=== PATIENT | female | born 1990 | race Caucasian/White ===

== ENCOUNTER 2016-08-22 11:57 | Emergency (ER) | payer OTHER ==
[~2016-08-22] VITALS: Ht 162.6 cm; Wt 61.0 kg
[~2016-08-22 11:57] MED LIST: NAPROSYN500 MG PO
[2016-08-22] MEDS ORDERED: TOBRAMYCIN0.3 % OS (12:29)
[2016-08-22 12:36] VITALS: BP 104/50
== END 2016-08-22 12:40 | disposition home or self-care (01) | DRG 125 ==
LOC: ED 11:57
DX: H10.9 Unspecified conjunctivitis (principal); H57.12 Ocular pain, left eye

== ENCOUNTER 2016-09-23 07:38 | Emergency (ER) | payer SELFPAY ==
[~2016-09-23] VITALS: Ht 162.6 cm; Wt 56.0 kg
[~2016-09-23 07:38] MED LIST changes: +TOBRAMYCIN0.3 % OS
[2016-09-23 08:33] LABS: URINE BILIRUBIN - DIPSTICK NEGATIVE (NEGATIVE); URINE BLOOD DIPSTICK NEGATIVE (NEGATIVE); URINE CLARITY CLEAR; URINE COLOR YELLOW; URINE GLUCOSE - DIPSTICK NEGATIVE (NEGATIVE); URINE KETONE NEGATIVE (NEGATIVE); URINE LEUK ESTERASE NEGATIVE (NEGATIVE); URINE NITRITE - DIPSTICK NEGATIVE (Negative); URINE PROTEIN - DIPSTICK NEGATIVE (NEG-TRACE); URINE UROBILINOGEN - DIPSTICK 0.2 E.U./dL (0.2)
[2016-09-23 08:33] LABS: HEMATOCRIT 41.8 % (37.0-47.0); HEMOGLOBIN 14.2 g/dl (12.0-16.0); IMMATURE GRANULOCYTES 0.3 % (0.0-1.0); MEAN CELL VOLUME 90.9 fL CALC (80.0-100.0); MEAN CORPUSCULAR HGB 30.9 pG CALC (26.0-32.0); NEUT# 4.3 thou/uL (2.00-7.15); RED BLOOD COUNT 4.6 mill/uL (4.20-5.60); RED CELL DISTRI WIDTH 12.9 % (11.5-15.5)
[2016-09-23 09:05] LABS: ALBUMIN 4.5 g/dL (3.2-5.0); ALKALINE PHOSPHATASE 57 u/l (38-126); AMYLASE 58 u/l (30-110); ANION GAP 13 (6-22 (CALC)); BILIRUBIN, TOTAL 0.8 mg/dL (0.0-1.4); BUN 12 mg/dL (7-17); BUN/CREATININE RATIO 19 (12-20 (CALC)); CALCIUM 9.4 mg/dL (8.4-10.2); CARBON DIOXIDE 25 mmol/l (22-30); CHLORIDE 104 mmol/l (95-108); CREATININE 0.6 mg/dL (0.5-1.0); GFR > 60 ML/MIN (>=60 (CALC)); GFR FOR AFR.AMER. > 60 ML/MIN (>=60 (CALC)); GLUCOSE 83 mg/dL (65-105); LIPASE 30 u/l (23-300); POTASSIUM 4.3 mmol/l (3.5-5.1); SGOT/AST 20 u/l (14-36); SGPT/ALT 24 u/l (9-52); SODIUM 138 mmol/l (137-146); TOTAL PROTEIN 7.2 g/dL (6.3-8.2)
[2016-09-23 12:16] VITALS: BP 102/57
== END 2016-09-23 12:24 | disposition home or self-care (01) | DRG 392 ==
LOC: ED 07:38
PROVIDERS: Emergency Medicine
DX: K52.9 Noninfective gastroenteritis and colitis, unspecified (principal); R11.2 Nausea with vomiting, unspecified; R10.84 Generalized abdominal pain

== ENCOUNTER 2016-10-09 11:20 | Emergency (ER) | payer SELFPAY ==
[~2016-10-09] VITALS: Ht 162.6 cm; Wt 61.0 kg
[2016-10-09 12:08] VITALS: BP 101/63
== END 2016-10-09 12:15 | disposition home or self-care (01) | DRG 153 ==
LOC: ED 11:20
DX: J02.9 Acute pharyngitis, unspecified (principal); R51 Headache

== ENCOUNTER 2017-01-07 12:15 | Emergency (ER) | payer SELFPAY ==
[~2017-01-07] VITALS: Ht 162.6 cm; Wt 62.0 kg
[2017-01-07] MEDS ORDERED: AMOXICILLIN500 MG PO (13:49)
[2017-01-07] MEDS ORDERED: ROBITUSSIN AC10 ML PO (13:49)
[2017-01-07 14:06] VITALS: BP 112/72
== END 2017-01-07 14:15 | disposition home or self-care (01) | DRG 153 ==
LOC: ED 12:15
DX: J02.9 Acute pharyngitis, unspecified (principal)

== ENCOUNTER 2017-02-11 11:16 | Emergency (ER) | payer SELFPAY ==
[~2017-02-11] VITALS: Ht 162.6 cm; Wt 59.0 kg
[~2017-02-11 11:16] MED LIST changes: +AMOXICILLIN500 MG PO; +ROBITUSSIN AC10 ML PO
[2017-02-11 12:05] LABS: HEMATOCRIT 40.4 % (37.0-47.0); HEMOGLOBIN 13.5 g/dl (12.0-16.0); IMMATURE GRANULOCYTES 0.3 % (0.0-1.0); MEAN CELL VOLUME 90.2 fL CALC (80.0-100.0); MEAN CORPUSCULAR HGB 30.1 pG CALC (26.0-32.0); MEAN CORPUSCULAR HGB CONC 33.4 g/L CALC (32.0-36.0); NEUT# 4.06 thou/uL (2.00-7.15); RED BLOOD COUNT 4.48 mill/uL (4.20-5.60); RED CELL DISTRI WIDTH 12.5 % (11.5-15.5); URINE BILIRUBIN - DIPSTICK NEGATIVE (NEGATIVE); URINE BLOOD DIPSTICK SMALL (NEGATIVE); URINE CLARITY CLEAR; URINE COLOR YELLOW; URINE GLUCOSE - DIPSTICK NEGATIVE (NEGATIVE); URINE KETONE NEGATIVE (NEGATIVE); URINE LEUK ESTERASE NEGATIVE (Negative); URINE NITRITE - DIPSTICK NEGATIVE (Negative); URINE PH 6.5 (4.5-8.0); URINE PROTEIN - DIPSTICK NEGATIVE (NEG-TRACE); URINE UROBILINOGEN - DIPSTICK 0.2 E.U./dL (0.2)
[2017-02-11 12:06] LABS: URINE EPITHELIAL CELLS RARE EPI/hpf (0-FEW)
[2017-02-11 12:11] LABS: ALBUMIN 4.9 g/dL (3.2-5.0); ALKALINE PHOSPHATASE 57 u/l (38-126); ANION GAP 14 (6-22 (CALC)); BILIRUBIN, TOTAL 0.7 mg/dL (0.0-1.4); BUN 9 mg/dL (7-17); BUN/CREATININE RATIO 14 (12-20 (CALC)); CALCIUM 9.5 mg/dL (8.4-10.2); CARBON DIOXIDE 28 mmol/l (22-30); CHLORIDE 104 mmol/l (95-108); CREATININE 0.7 mg/dL (0.5-1.0); GFR > 60 ML/MIN (>=60 (CALC)); GFR FOR AFR.AMER. > 60 ML/MIN (>=60 (CALC)); GLUCOSE 89 mg/dL (65-105); LIPASE 28 u/l (23-300); POTASSIUM 3.8 mmol/l (3.5-5.1); SGOT/AST 17 u/l (14-36); SGPT/ALT 32 u/l (9-52); SODIUM 143 mmol/l (137-146); TOTAL PROTEIN 7.8 g/dL (6.3-8.2)
[2017-02-11] MEDS ORDERED: CIPROFLOXACN500 MG PO (15:49)
[2017-02-11 16:06] VITALS: BP 100/58
== END 2017-02-11 16:09 | disposition home or self-care (01) | DRG 392 ==
LOC: ED 11:16
PROVIDERS: Emergency Medicine
DX: R10.32 Left lower quadrant pain (principal)

== ENCOUNTER 2017-03-06 09:16 | Emergency (ER) | payer OTHER ==
[~2017-03-06] VITALS: Ht 162.6 cm; Wt 59.1 kg
[~2017-03-06 09:16] MED LIST changes: +CIPROFLOXACN500 MG PO
[2017-03-06] MEDS ORDERED: MOTRIN800 MG PO (09:39)
[2017-03-06 10:00] VITALS: BP 127/68
== END 2017-03-06 10:00 | disposition home or self-care (01) | DRG 556 ==
LOC: ED 09:16
DX: M25.561 Pain in right knee (principal); S89.91XA Unspecified injury of right lower leg, initial encounter; W19.XXXA Unspecified fall, initial encounter

== ENCOUNTER 2017-06-05 15:40 | Emergency (ER) | payer OTHER ==
[~2017-06-05] VITALS: Ht 162.6 cm; Wt 63.2 kg
[~2017-06-05 15:40] MED LIST changes: +MOTRIN800 MG PO
[2017-06-05] MEDS ORDERED: TAM75CAP PO (16:10)
[2017-06-05 16:57] VITALS: BP 108/61
[2017-06-05] MEDS ORDERED: NO HOME MEDS (16:58)
== END 2017-06-05 16:57 | disposition home or self-care (01) | DRG 153 ==
LOC: ED 15:40
DX: J11.1 Influenza due to unidentified influenza virus with other respiratory manifestations (principal); R05 Cough; R09.81 Nasal congestion; R50.9 Fever, unspecified; R52 Pain, unspecified

== ENCOUNTER 2017-07-21 09:55 | Emergency (ER) | payer OTHER ==
[~2017-07-21] VITALS: Ht 162.6 cm; Wt 66.4 kg
[~2017-07-21 09:55] MED LIST changes: +NO HOME MEDS; +TAM75CAP PO
[2017-07-21 12:00] VITALS: BP 114/71
[2017-07-21] MEDS ORDERED: ULTRAM50 M1 PO (12:02)
== END 2017-07-21 12:00 | disposition home or self-care (01) | DRG 605 ==
LOC: ED 09:55
DX: S01.81XA Laceration without foreign body of other part of head, initial encounter (principal); F17.210 Nicotine dependence, cigarettes, uncomplicated; V86.95XA Unspecified occupant of 3- or 4- wheeled all-terrain vehicle (ATV) injured in nontraffic accident, initial encounter

== ENCOUNTER 2017-08-08 09:57 | Emergency (ER) | payer OTHER ==
[~2017-08-08] VITALS: Ht 162.6 cm; Wt 63.6 kg
[~2017-08-08 09:57] MED LIST changes: +ULTRAM50 M1 PO
[2017-08-08] MEDS ORDERED: TESSALON PER100 MG PO (10:11)
[2017-08-08] MEDS ORDERED: AFRIN 12 HOUR0.05 % (10:11)
[2017-08-08] MEDS ORDERED: MOTRIN800 MG PO (10:11)
[2017-08-08 10:12] VITALS: BP 121/72
== END 2017-08-08 10:21 | disposition home or self-care (01) | DRG 153 ==
LOC: ED 09:57
DX: J06.9 Acute upper respiratory infection, unspecified (principal); R09.81 Nasal congestion; R42 Dizziness and giddiness

== ENCOUNTER 2018-02-03 15:46 | Emergency (ER) | payer OTHER ==
[~2018-02-03] VITALS: Ht 162.6 cm; Wt 56.9 kg
[~2018-02-03 15:46] MED LIST changes: +AFRIN 12 HOUR0.05 %; +TESSALON PER100 MG PO
[2018-02-03 16:45] LABS: URINE BILIRUBIN - DIPSTICK NEGATIVE (NEGATIVE); URINE BLOOD DIPSTICK MODERATE (NEGATIVE); URINE COLOR YELLOW; URINE GLUCOSE - DIPSTICK NEGATIVE (NEGATIVE); URINE KETONE NEGATIVE (NEGATIVE); URINE NITRITE - DIPSTICK NEGATIVE (Negative); URINE PH 6.5 (4.5-8.0); URINE PROTEIN - DIPSTICK NEGATIVE (NEG-TRACE); URINE SPECIFIC GRAVITY <=1.005; URINE UROBILINOGEN - DIPSTICK 0.2 E.U./dL (0.2)
[2018-02-03 16:46] LABS: URINE LEUK ESTERASE MODERATE (NEGATIVE)
[2018-02-03 16:47] LABS: URINE CLARITY HAZY
[2018-02-03 16:59] LABS: URINE SQUAMOUS EPITHELIAL CELL MODERATE EPI/hpf (0-FEW)
[2018-02-03] MEDS ORDERED: CIPROFLOXACN500 MG PO (17:11)
[2018-02-03] MEDS ORDERED: PYRIDIUM200 MG PO (17:12)
[2018-02-03 17:40] VITALS: BP 114/67
== END 2018-02-03 17:40 | disposition home or self-care (01) ==
LOC: ED 15:46
DX: N39.0 Urinary tract infection, site not specified (principal); B96.20 Unspecified Escherichia coli [E. coli] as the cause of diseases classified elsewhere; F17.210 Nicotine dependence, cigarettes, uncomplicated; R30.0 Dysuria; R35.0 Frequency of micturition; R39.15 Urgency of urination

== ENCOUNTER 2018-02-17 08:32 | Emergency (ER) | payer OTHER ==
[~2018-02-17] VITALS: Ht 162.6 cm; Wt 68.0 kg
[~2018-02-17 08:32] MED LIST changes: +PYRIDIUM200 MG PO
[2018-02-17 09:29] LABS: HEMATOCRIT 40.8 % (37.0-47.0); HEMOGLOBIN 13.7 g/dl (12.0-16.0); IMMATURE GRANULOCYTES 0.7 % (0.0-5.0); MEAN CELL VOLUME 93.2 fL CALC (80.0-100.0); MEAN CORPUSCULAR HGB 31.3 pG CALC (26.0-32.0); MEAN CORPUSCULAR HGB CONC 33.6 g/L CALC (32.0-36.0); NEUT# 3.02 thou/uL (2.00-7.15); RED BLOOD COUNT 4.38 mill/uL (4.20-5.60); RED CELL DISTRI WIDTH 12.6 % (11.5-15.5)
[2018-02-17 09:42] LABS: ALBUMIN 4.3 g/dL (3.2-5.0); ALKALINE PHOSPHATASE 70 u/l (38-126); ANION GAP 13 (6-22 (CALC)); BILIRUBIN, TOTAL 0.3 mg/dL (0.0-1.4); BUN 11 mg/dL (7-17); BUN/CREATININE RATIO 18 (12-20 (CALC)); CARBON DIOXIDE 24 mmol/l (22-30); CHLORIDE 109 mmol/l (95-108); CREATININE 0.6 mg/dL (0.5-1.0); GFR > 60 ML/MIN (>=60 (CALC)); GFR FOR AFR.AMER. > 60 ML/MIN (>=60 (CALC)); LIPASE 33 u/l (23-300); POTASSIUM 3.9 mmol/l (3.5-5.1); SGOT/AST 18 u/l (14-36); SGPT/ALT 23 u/l (9-52); SODIUM 141 mmol/l (137-146); TOTAL PROTEIN 7.1 g/dL (6.3-8.2); URINE BILIRUBIN - DIPSTICK NEGATIVE (NEGATIVE); URINE BLOOD DIPSTICK NEGATIVE (NEGATIVE); URINE COLOR YELLOW; URINE GLUCOSE - DIPSTICK NEGATIVE (NEGATIVE); URINE KETONE NEGATIVE (NEGATIVE); URINE LEUK ESTERASE NEGATIVE (NEGATIVE); URINE NITRITE - DIPSTICK NEGATIVE (Negative); URINE PH 6.5 (4.5-8.0); URINE PROTEIN - DIPSTICK NEGATIVE (NEG-TRACE); URINE SPECIFIC GRAVITY 1.015; URINE UROBILINOGEN - DIPSTICK 0.2 E.U./dL (0.2)
[2018-02-17 09:44] LABS: URINE CLARITY CLEAR
[2018-02-17] MEDS ORDERED: MOTRIN400 MG PO (10:35)
[2018-02-17] MEDS ORDERED: CEPHALEXIN500 M1 PO (10:35)
[2018-02-17 10:51] VITALS: BP 99/50
== END 2018-02-17 11:02 | disposition home or self-care (01) ==
LOC: ED 08:32
PROVIDERS: Family Medicine
DX: S39.012A Strain of muscle, fascia and tendon of lower back, initial encounter (principal); S39.011A Strain of muscle, fascia and tendon of abdomen, initial encounter; N39.0 Urinary tract infection, site not specified; F17.200 Nicotine dependence, unspecified, uncomplicated; X58.XXXA Exposure to other specified factors, initial encounter; R10.32 Left lower quadrant pain; R10.31 Right lower quadrant pain; M54.5 Low back pain

== ENCOUNTER 2018-05-11 18:42 | Emergency (ER) | payer SELFPAY ==
[~2018-05-11] VITALS: Ht 162.6 cm; Wt 65.9 kg
[~2018-05-11 18:42] MED LIST changes: +CEPHALEXIN500 M1 PO; +MOTRIN400 MG PO
[2018-05-11] MEDS ORDERED: VALACYCLOVIR HCL1 GM PO (19:31)
[2018-05-11 19:40] VITALS: BP 116/75
== END 2018-05-11 19:40 | disposition home or self-care (01) | DRG 596 ==
LOC: ED 18:42
DX: B02.9 Zoster without complications (principal)

== ENCOUNTER 2018-09-02 19:21 | Emergency (ER) | payer SELFPAY ==
[~2018-09-02] VITALS: Ht 167.6 cm; Wt 67.2 kg
[~2018-09-02 19:21] MED LIST changes: +VALACYCLOVIR HCL1 GM PO
[2018-09-02] MEDS ORDERED: VOLTAREN - GENE75 MG PO (21:05)
[2018-09-02 21:07] VITALS: BP 115/62
== END 2018-09-02 21:07 | disposition home or self-care (01) | DRG 605 ==
LOC: ED 19:21
DX: S90.31XA Contusion of right foot, initial encounter (principal); S90.01XA Contusion of right ankle, initial encounter; M25.571 Pain in right ankle and joints of right foot

== ENCOUNTER 2018-09-18 09:33 | Emergency (ER) | payer MEDICAID ==
[~2018-09-18] VITALS: Ht 167.6 cm; Wt 70.0 kg
[~2018-09-18 09:33] MED LIST changes: +VOLTAREN - GENE75 MG PO
[2018-09-18] MEDS ORDERED: AMOXICILLIN500 MG PO (10:56)
[2018-09-18 11:02] VITALS: BP 118/64
== END 2018-09-18 11:19 | disposition home or self-care (01) ==
LOC: ED 09:33
DX: J02.9 Acute pharyngitis, unspecified (principal); R05 Cough; R09.89 Other specified symptoms and signs involving the circulatory and respiratory systems; R06.7 Sneezing

== ENCOUNTER 2018-11-03 19:36 | Emergency (ER) | payer OTHER ==
[~2018-11-03] VITALS: Ht 167.6 cm; Wt 69.0 kg
[2018-11-03] MEDS ORDERED: GENTAMICIN15 ML/BTL OU (20:50)
[2018-11-03] MEDS ORDERED: FIORICET PO (20:50)
[2018-11-03 21:20] VITALS: BP 117/67
== END 2018-11-03 21:20 | disposition home or self-care (01) ==
LOC: ED 19:36
DX: H10.9 Unspecified conjunctivitis (principal); H57.13 Ocular pain, bilateral; H53.8 Other visual disturbances; H53.143 Visual discomfort, bilateral; R11.0 Nausea

== ENCOUNTER 2018-11-07 23:42 | Emergency (ER) | payer OTHER ==
[~2018-11-07] VITALS: Ht 167.6 cm; Wt 69.2 kg
[~2018-11-07 23:42] MED LIST changes: +FIORICET PO; +GENTAMICIN15 ML/BTL OU
[2018-11-08] MEDS ORDERED: IBUPROFEN600 MG PO (02:05)
[2018-11-08 02:06] VITALS: BP 110/60
== END 2018-11-08 02:12 | disposition home or self-care (01) ==
LOC: ED 23:42
DX: S89.82XA Other specified injuries of left lower leg, initial encounter (principal); M17.12 Unilateral primary osteoarthritis, left knee; F17.210 Nicotine dependence, cigarettes, uncomplicated; X50.0XXA Overexertion from strenuous movement or load, initial encounter; Y93.89 Activity, other specified; Y92.009 Unspecified place in unspecified non-institutional (private) residence as the place of occurrence of the external cause
CPT/HCPCS: L1830

== ENCOUNTER 2018-12-15 14:20 | Emergency (ER) | payer OTHER ==
[~2018-12-15] VITALS: Ht 162.6 cm; Wt 69.5 kg
[~2018-12-15 14:20] MED LIST changes: +IBUPROFEN600 MG PO
[2018-12-15 15:06] LABS: URINE BILIRUBIN - DIPSTICK NEGATIVE (NEGATIVE); URINE BLOOD DIPSTICK NEGATIVE (NEGATIVE); URINE COLOR YELLOW; URINE GLUCOSE - DIPSTICK NEGATIVE (NEGATIVE); URINE KETONE NEGATIVE (NEGATIVE); URINE LEUK ESTERASE NEGATIVE (NEGATIVE); URINE NITRITE - DIPSTICK NEGATIVE (Negative); URINE PROTEIN - DIPSTICK NEGATIVE (NEG-TRACE); URINE SPECIFIC GRAVITY 1.015; URINE UROBILINOGEN - DIPSTICK 0.2 E.U./dL (0.2)
[2018-12-15] MEDS ORDERED: PYRIDIUM200 MG PO (15:37)
[2018-12-15] MEDS ORDERED: KEFLEX500 M1 PO (15:37)
[2018-12-15 16:15] VITALS: BP 119/62
== END 2018-12-15 16:15 | disposition home or self-care (01) ==
LOC: ED 14:20
DX: N39.0 Urinary tract infection, site not specified (principal); R10.30 Lower abdominal pain, unspecified; R30.0 Dysuria; R35.0 Frequency of micturition; F17.210 Nicotine dependence, cigarettes, uncomplicated

== ENCOUNTER 2019-04-27 11:41 | Emergency (ER) | payer MEDICAID ==
[~2019-04-27] VITALS: Ht 162.6 cm; Wt 65.0 kg
[~2019-04-27 11:41] MED LIST changes: +KEFLEX500 M1 PO
[2019-04-27 12:20] LABS: URINE BILIRUBIN - DIPSTICK NEGATIVE (NEGATIVE); URINE BLOOD DIPSTICK NEGATIVE (NEGATIVE); URINE COLOR YELLOW; URINE GLUCOSE - DIPSTICK NEGATIVE (NEGATIVE); URINE KETONE NEGATIVE (NEGATIVE); URINE LEUK ESTERASE NEGATIVE (NEGATIVE); URINE NITRITE - DIPSTICK NEGATIVE (Negative); URINE PH 6.5 (4.5-8.0); URINE PROTEIN - DIPSTICK NEGATIVE (NEG-TRACE); URINE UROBILINOGEN - DIPSTICK 0.2 E.U./dL (0.2)
[2019-04-27] MEDS ORDERED: NAPROXEN500 MG PO (13:07)
[2019-04-27 13:20] VITALS: BP 106/64
== END 2019-04-27 13:20 | disposition home or self-care (01) ==
LOC: ED 11:41
PROVIDERS: Emergency Medicine
DX: S23.41XA Sprain of ribs, initial encounter (principal)

== ENCOUNTER 2019-06-18 | Emergency (ER) | payer OTHER ==
[~2019-06-18] MED LIST changes: +NAPROXEN500 MG PO
[2019-06-18 09:29] LABS: HEMATOCRIT 41.1 % (37.0-47.0); HEMOGLOBIN 13.7 g/dl (12.0-16.0); IMMATURE GRANULOCYTES 0.5 % (0.0-5.0); MEAN CELL VOLUME 91.5 fL CALC (80.0-100.0); MEAN CORPUSCULAR HGB 30.5 pG CALC (26.0-32.0); MEAN CORPUSCULAR HGB CONC 33.3 g/L CALC (32.0-36.0); NEUT# 3.82 thou/uL (2.00-7.15); RED BLOOD COUNT 4.49 mill/uL (4.20-5.60); RED CELL DISTRI WIDTH 12.1 % (11.5-15.5)
[2019-06-18 09:56] LABS: ANION GAP 13 (6-22 (CALC)); BUN 13 mg/dL (7-17); BUN/CREATININE RATIO 22 (12-20 (CALC)); CARBON DIOXIDE 27 mmol/l (22-30); CHLORIDE 103 mmol/l (95-108); CREATININE 0.6 mg/dL (0.5-1.0); GFR > 60 ML/MIN (>=60 (CALC)); GFR FOR AFR.AMER. > 60 ML/MIN (>=60 (CALC)); POTASSIUM 4.3 mmol/l (3.5-5.1); SODIUM 138 mmol/l (137-146)
== END 2019-06-18 12:05 | disposition home or self-care (01) ==
PROVIDERS: Family Medicine
DX: R51 Headache (principal); R42 Dizziness and giddiness; H53.8 Other visual disturbances; R11.2 Nausea with vomiting, unspecified

== ENCOUNTER 2020-02-22 14:00 | Emergency (ER) | payer OTHER ==
[~2020-02-22] VITALS: Ht 162.6 cm; Wt 70.0 kg
[2020-02-22 14:22] LABS: HEMATOCRIT 41.3 % (37.0-47.0); IMMATURE GRANULOCYTES 0.4 % (0.0-5.0); MEAN CELL VOLUME 92.2 fL CALC (80.0-100.0); MEAN CORPUSCULAR HGB 31.3 pG CALC (26.0-32.0); MEAN CORPUSCULAR HGB CONC 33.9 g/dL CAL (32.0-36.0); NEUT# 3.52 thou/uL (2.00-7.15); RED BLOOD COUNT 4.48 mill/uL (4.20-5.60); RED CELL DISTRI WIDTH 12.5 % (11.5-15.5)
[2020-02-22 14:35] LABS: ALBUMIN 4.7 g/dL (3.2-5.0); ALKALINE PHOSPHATASE 66 u/l (38-126); ANION GAP 14 (6-22 (CALC)); BUN 10 mg/dL (7-17); BUN/CREATININE RATIO 17 (12-20 (CALC)); CARBON DIOXIDE 24 mmol/l (22-30); CHLORIDE 103 mmol/l (95-108); CREATININE 0.6 mg/dL (0.5-1.0); GFR > 60 ML/MIN (>=60 (CALC)); GFR FOR AFR.AMER. > 60 ML/MIN (>=60 (CALC)); LIPASE 42 u/l (23-300); POTASSIUM 4.3 mmol/l (3.5-5.1); SGOT/AST 23 u/l (14-36); SODIUM 138 mmol/l (137-146); TOTAL PROTEIN 7.3 g/dL (6.3-8.2)
[2020-02-22 14:43] LABS: BILIRUBIN, TOTAL 0.5 mg/dL (0.0-1.4)
[2020-02-22 14:56] LABS: URINE BILIRUBIN - DIPSTICK NEGATIVE (NEGATIVE); URINE BLOOD DIPSTICK NEGATIVE (NEGATIVE); URINE COLOR YELLOW; URINE GLUCOSE - DIPSTICK NEGATIVE (NEGATIVE); URINE KETONE NEGATIVE (NEGATIVE); URINE LEUK ESTERASE TRACE (NEGATIVE); URINE NITRITE - DIPSTICK NEGATIVE (Negative); URINE PH 6.5 (4.5-8.0); URINE PROTEIN - DIPSTICK NEGATIVE (NEG-TRACE); URINE UROBILINOGEN - DIPSTICK 0.2 E.U./dL (0.2)
[2020-02-22 16:20] VITALS: BP 125/80
== END 2020-02-22 16:20 | disposition home or self-care (01) ==
LOC: ED 14:00
DX: K59.00 Constipation, unspecified (principal)
CPT/HCPCS: Q9967

== ENCOUNTER 2020-04-19 15:40 | Emergency (ER) | payer OTHER ==
[~2020-04-19] VITALS: Ht 162.6 cm; Wt 65.0 kg
[2020-04-19] MEDS ORDERED: MOTRIN800 MG PO (17:57)
[2020-04-19 18:10] VITALS: BP 118/73
== END 2020-04-19 18:10 | disposition home or self-care (01) ==
LOC: ED 15:40
DX: S93.504A Unspecified sprain of right lesser toe(s), initial encounter (principal); S90.121A Contusion of right lesser toe(s) without damage to nail, initial encounter; W22.09XA Striking against other stationary object, initial encounter; Y92.009 Unspecified place in unspecified non-institutional (private) residence as the place of occurrence of the external cause

== ENCOUNTER 2020-09-17 | Emergency (ER) | payer OTHER ==
[2020-09-17] MEDS ORDERED: CELEBREX100 M1 PO (11:50)
== END 2020-09-17 11:55 | disposition home or self-care (01) ==
DX: S63.501A Unspecified sprain of right wrist, initial encounter (principal); X50.0XXA Overexertion from strenuous movement or load, initial encounter; Y93.89 Activity, other specified; Y92.009 Unspecified place in unspecified non-institutional (private) residence as the place of occurrence of the external cause

== ENCOUNTER 2020-11-20 11:40 | Emergency (ER) | payer OTHER ==
[~2020-11-20] VITALS: Ht 165.1 cm; Wt 64.0 kg
[~2020-11-20 11:40] MED LIST changes: +CELEBREX100 M1 PO
[2020-11-20 12:26] LABS: HEMATOCRIT 41.6 % (37.0-47.0); IMMATURE GRANULOCYTES 0.4 % (0.0-5.0); MEAN CELL VOLUME 92.4 fL CALC (80.0-100.0); MEAN CORPUSCULAR HGB 31.1 pG CALC (26.0-32.0); MEAN CORPUSCULAR HGB CONC 33.7 g/dL CAL (32.0-36.0); NEUT# 2.84 thou/uL (2.00-7.15); RED BLOOD COUNT 4.5 mill/uL (4.20-5.60); RED CELL DISTRI WIDTH 11.8 % (11.5-15.5)
[2020-11-20 12:27] LABS: URINE BILIRUBIN - DIPSTICK NEGATIVE (NEGATIVE); URINE BLOOD DIPSTICK NEGATIVE (NEGATIVE); URINE COLOR YELLOW; URINE GLUCOSE - DIPSTICK NEGATIVE (NEGATIVE); URINE KETONE NEGATIVE (NEGATIVE); URINE LEUK ESTERASE NEGATIVE (NEGATIVE); URINE PH 6.5 (4.5-8.0); URINE PROTEIN - DIPSTICK NEGATIVE (NEG-TRACE); URINE UROBILINOGEN - DIPSTICK 0.2 E.U./dL (0.2)
[2020-11-20 12:32] LABS: URINE NITRITE - DIPSTICK NEGATIVE (Negative)
[2020-11-20 12:42] LABS: ALBUMIN 4.6 g/dL (3.2-5.0); ALKALINE PHOSPHATASE 60 u/l (38-126); ANION GAP 14 (6-22 (CALC)); BUN 11 mg/dL (7-17); BUN/CREATININE RATIO 17 (12-20 (CALC)); CARBON DIOXIDE 26 mmol/l (22-30); CHLORIDE 102 mmol/l (95-108); CREATININE 0.6 mg/dL (0.5-1.0); GFR > 60 ML/MIN (>=60 (CALC)); GFR FOR AFR.AMER. > 60 ML/MIN (>=60 (CALC)); POTASSIUM 3.8 mmol/l (3.5-5.1); SGOT/AST 23 u/l (14-36); SODIUM 138 mmol/l (137-146); TOTAL PROTEIN 7.4 g/dL (6.3-8.2)
[2020-11-20 12:43] LABS: BILIRUBIN, TOTAL 0.8 mg/dL (0.0-1.4)
[2020-11-20] MEDS ORDERED: ATIVAN0.5 MG PO (12:49)
[2020-11-20 12:50] VITALS: BP 107/74
== END 2020-11-20 13:00 | disposition home or self-care (01) ==
LOC: ED 11:40
PROVIDERS: Emergency Medicine
DX: F41.9 Anxiety disorder, unspecified (principal)

== ENCOUNTER 2020-12-28 07:49 | Emergency (ER) | payer OTHER ==
[~2020-12-28 07:49] MED LIST changes: +ATIVAN0.5 MG PO
[2020-12-28] MEDS ORDERED: CORTISPORIN OTI10 ML AS (08:33)
[2020-12-28] MEDS ORDERED: TOBREX OPTH5 ML/BTL OS (08:33)
[2020-12-28] MEDS ORDERED: AMOX/K CLAV875 M1 PO (08:33)
[2020-12-28 08:46] VITALS: BP 114/69
== END 2020-12-28 08:46 | disposition home or self-care (01) ==
LOC: ED 07:49
DX: H66.92 Otitis media, unspecified, left ear (principal); H10.9 Unspecified conjunctivitis; F17.200 Nicotine dependence, unspecified, uncomplicated

== ENCOUNTER 2021-04-25 14:54 | Emergency (ER) | payer OTHER ==
[~2021-04-25] VITALS: Ht 165.1 cm; Wt 62.0 kg
[~2021-04-25 14:54] MED LIST changes: +AMOX/K CLAV875 M1 PO; +CORTISPORIN OTI10 ML AS; +TOBREX OPTH5 ML/BTL OS
[2021-04-25] MEDS ORDERED: ZPAK PO (16:52)
[2021-04-25 17:10] VITALS: BP 111/58
== END 2021-04-25 17:10 | disposition home or self-care (01) ==
LOC: ED 14:54
DX: J06.9 Acute upper respiratory infection, unspecified (principal); Z20.822 Contact with and (suspected) exposure to COVID-19

== ENCOUNTER 2021-10-15 09:29 | Emergency (ER) | payer OTHER ==
[~2021-10-15] VITALS: Ht 165.1 cm; Wt 65.9 kg
[~2021-10-15 09:29] MED LIST changes: +ZPAK PO
[2021-10-15 09:40] VITALS: BP 100/62
[2021-10-15 09:45] VITALS: BP 105/70
[2021-10-15] MEDS ORDERED: IBUPROFEN600 MG PO (11:30)
[2021-10-15 11:33] VITALS: BP 105/70
== END 2021-10-15 11:39 | disposition home or self-care (01) ==
LOC: ED 09:29
DX: S83.92XA Sprain of unspecified site of left knee, initial encounter (principal); X50.0XXA Overexertion from strenuous movement or load, initial encounter
CPT/HCPCS: L1830

== ENCOUNTER 2022-01-24 10:45 | Emergency (ER) | payer OTHER ==
[~2022-01-24] VITALS: Ht 165.1 cm; Wt 65.9 kg
[2022-01-24 11:22] LABS: HEMATOCRIT 38.3 % (37.0-47.0); HEMOGLOBIN 13.2 g/dl (12.0-16.0); IMMATURE GRANULOCYTES 0.2 % (0.0-5.0); MEAN CELL VOLUME 89.9 fL CALC (80.0-100.0); MEAN CORPUSCULAR HGB CONC 34.5 g/dL CAL (32.0-36.0); NEUT# 3.75 thou/uL (2.00-7.15); RED BLOOD COUNT 4.26 mill/uL (4.20-5.60)
[2022-01-24 11:31] LABS: ALBUMIN 4.5 g/dL (3.2-5.0); ALKALINE PHOSPHATASE 49 u/l (38-126); ANION GAP 15 (6-22 (CALC)); BILIRUBIN, TOTAL 0.7 mg/dL (0.0-1.4); BUN 14 mg/dL (7-17); BUN/CREATININE RATIO 21 (12-20 (CALC)); CARBON DIOXIDE 22 mmol/l (22-30); CHLORIDE 107 mmol/l (95-108); CPK 46 u/l (30-165); CREATININE 0.7 mg/dL (0.5-1.0); GFR FOR AFR.AMER. > 60 ML/MIN (>=60 (CALC)); GFR OTHER RACES > 60 ML/MIN (>=60 (CALC)); POTASSIUM 3.7 mmol/l (3.5-5.1); SGOT/AST 17 u/l (14-36); SODIUM 139 mmol/l (137-146); TOTAL PROTEIN 7.3 g/dL (6.3-8.2)
[2022-01-24 12:55] LABS: URINE BILIRUBIN - DIPSTICK NEGATIVE (NEGATIVE); URINE BLOOD DIPSTICK NEGATIVE (NEGATIVE); URINE COLOR YELLOW; URINE GLUCOSE - DIPSTICK NEGATIVE (NEGATIVE); URINE KETONE NEGATIVE (NEGATIVE); URINE LEUK ESTERASE NEGATIVE (NEGATIVE); URINE PH 5.5 (4.5-8.0); URINE PROTEIN - DIPSTICK NEGATIVE (NEG-TRACE); URINE SPECIFIC GRAVITY <=1.005; URINE UROBILINOGEN - DIPSTICK 0.2 E.U./dL (0.2)
[2022-01-24 13:04] LABS: URINE NITRITE - DIPSTICK NEGATIVE (Negative)
[2022-01-24] MEDS ORDERED: ONDANSETRON4 MG PO (13:15)
[2022-01-24 13:28] VITALS: BP 99/57
== END 2022-01-24 13:28 | disposition home or self-care (01) ==
LOC: ED 10:45
PROVIDERS: Family Medicine
DX: E86.0 Dehydration (principal); R51.9 Headache, unspecified

== ENCOUNTER 2022-06-05 08:15 | Emergency (ER) | payer OTHER ==
[~2022-06-05] VITALS: Ht 165.1 cm; Wt 70.0 kg
[~2022-06-05 08:15] MED LIST changes: +ONDANSETRON4 MG PO
[2022-06-05] MEDS ORDERED: ZPAK PO (08:55)
[2022-06-05 09:35] VITALS: BP 108/56
== END 2022-06-05 09:55 | disposition home or self-care (01) ==
LOC: ED 08:15
DX: J06.9 Acute upper respiratory infection, unspecified (principal)

== ENCOUNTER 2022-10-03 09:54 | Emergency (ER) | payer OTHER ==
[~2022-10-03] VITALS: Ht 165.1 cm; Wt 72.5 kg
[2022-10-03 11:20] LABS: URINE BILIRUBIN - DIPSTICK NEGATIVE (NEGATIVE); URINE BLOOD DIPSTICK NEGATIVE (NEGATIVE); URINE COLOR YELLOW; URINE GLUCOSE - DIPSTICK NEGATIVE (NEGATIVE); URINE KETONE NEGATIVE (NEGATIVE); URINE LEUK ESTERASE NEGATIVE (NEGATIVE); URINE NITRITE - DIPSTICK NEGATIVE (Negative); URINE PH 6.5 (4.5-8.0); URINE PROTEIN - DIPSTICK NEGATIVE (NEG-TRACE); URINE UROBILINOGEN - DIPSTICK 0.2 E.U./dL (0.2)
[2022-10-03 11:21] LABS: BASO% 0.6 % (0-3); EOS% 1.1 % (0-8); HEMATOCRIT 41.6 % (37.0-47.0); HEMOGLOBIN 13.8 g/dl (12.0-16.0); IMMATURE GRANULOCYTES 0.2 % (0.0-5.0); LYMPH% 34.2 % (15-41); MEAN CELL VOLUME 90.8 fL CALC (80.0-100.0); MEAN CORPUSCULAR HGB 30.1 pG CALC (26.0-32.0); MEAN CORPUSCULAR HGB CONC 33.2 g/dL CAL (32.0-36.0); MONO% 7.8 % (2-13); NEUT# 3.57 thou/uL (2.00-7.15); NEUT% 56.1 % (42-76); RED BLOOD COUNT 4.58 mill/uL (4.20-5.60); RED CELL DISTRI WIDTH 12.1 % (11.5-15.5)
[2022-10-03 11:39] LABS: ALBUMIN 4.5 g/dL (3.2-5.0); ALKALINE PHOSPHATASE 57 u/l (38-126); ANION GAP 10 (6-22 (CALC)); BILIRUBIN, TOTAL 0.7 mg/dL (0.02-1.3); BUN 11 mg/dL (7-17); BUN/CREATININE RATIO 17 (12-20 (CALC)); CHLORIDE 105 mmol/l (95-108); CREATININE 0.7 mg/dL (0.5-1.0); GFR FOR AFR.AMER. > 60 ML/MIN (>=60 (CALC)); GFR OTHER RACES > 60 ML/MIN (>=60 (CALC)); POTASSIUM 3.9 mmol/l (3.5-5.1); SGOT/AST 25 u/l (14-36); SODIUM 139 mmol/l (137-146); TOTAL PROTEIN 6.8 g/dL (6.3-8.2)
[2022-10-03 11:41] LABS: CARBON DIOXIDE 28 mmol/l (22-30)
[2022-10-03] MEDS ORDERED: NAPROXEN500 MG PO (12:38)
[2022-10-03] MEDS ORDERED: VOLTAREN1%GEL TOP (12:38)
[2022-10-03 13:52] VITALS: BP 116/71
== END 2022-10-03 13:53 | disposition home or self-care (01) ==
LOC: ED 09:54
PROVIDERS: Family Medicine
DX: R07.81 Pleurodynia (principal)

== ENCOUNTER 2022-10-12 21:01 | Emergency (ER) | payer OTHER ==
[~2022-10-12] VITALS: Ht 165.1 cm; Wt 80.0 kg
[~2022-10-12 21:01] MED LIST changes: +VOLTAREN1%GEL TOP
[2022-10-12 21:09] VITALS: BP 118/76
[2022-10-12 21:30] VITALS: BP 115/69
[2022-10-12 22:00] VITALS: BP 103/70
[2022-10-12 22:30] VITALS: BP 106/68
[2022-10-12] MEDS ORDERED: NAPROXEN500 MG PO (22:50)
[2022-10-12 23:00] VITALS: BP 101/64
== END 2022-10-12 23:13 | disposition home or self-care (01) ==
LOC: ED 21:01
DX: S60.221A Contusion of right hand, initial encounter (principal); X58.XXXA Exposure to other specified factors, initial encounter

== ENCOUNTER 2023-06-15 18:26 | Emergency (ER) | payer BC ==
[~2023-06-15] VITALS: Ht 165.1 cm; Wt 77.0 kg
[2023-06-15 19:09] VITALS: BP 117/69
[2023-06-15 19:30] VITALS: BP 100/63
[2023-06-15 20:27] VITALS: BP 100/63
== END 2023-06-15 20:28 | disposition home or self-care (01) | DRG 605 ==
LOC: ED 18:26
DX: S80.01XA Contusion of right knee, initial encounter (principal); V86.55XA Driver of 3- or 4- wheeled all-terrain vehicle (ATV) injured in nontraffic accident, initial encounter

== ENCOUNTER 2023-06-23 11:59 | Emergency (ER) | payer BC ==
[2023-06-23] VITALS (10 sets, daily range): BP systolic 91–110; BP diastolic 58–71
[~2023-06-23] VITALS: Ht 165.1 cm; Wt 77.0 kg
[2023-06-23] MEDS ORDERED: MEDDOSEPAK PO (14:32)
[2023-06-23] MEDS ORDERED: ZPAK PO (14:32)
[2023-06-23] MEDS ORDERED: ZYRTEC10 MG PO (14:35)
== END 2023-06-23 15:20 | disposition home or self-care (01) | DRG 179 ==
LOC: ED 11:59
DX: U07.1 COVID-19 (principal); J02.9 Acute pharyngitis, unspecified; R05.9 Cough, unspecified; H92.03 Otalgia, bilateral; R50.9 Fever, unspecified; R52 Pain, unspecified

== ENCOUNTER 2023-11-21 23:07 | Emergency (ER) | payer BC ==
[~2023-11-21] VITALS: Ht 162.6 cm; Wt 78.0 kg
[~2023-11-21 23:07] MED LIST changes: +MEDDOSEPAK PO; +ZYRTEC10 MG PO
[2023-11-21 23:14] VITALS: BP 117/66
[2023-11-21] MEDS ORDERED: SODIUM CHLORIDE 0.9% 1,000 ML IV ONE (23:15)
[2023-11-21] MEDS ORDERED: KETOROLAC TROMETHAMINE 30 MG/ML SDV IV ONE (23:15)
[2023-11-21] MEDS ORDERED: DiphenhydrAMINE HCL 50 MG/ML SDV IV ONE (23:20)
[2023-11-21] MEDS ORDERED: PROMETHAZINE HCL 25 MG/ML AMP IV ONE (23:20)
[2023-11-21] MEDS ORDERED: SUMAtriptan SUCCINATE 6 MG/0.5 ML SDV SC ONE (23:20)
[2023-11-21] MEDS ORDERED: DEXAMETHASONE SOD. PHOSPHATE 10 MG/ML VIAL IV ONE (23:20)
[2023-11-21] MEDS ORDERED: ACETAMINOPHEN 500 MG TAB PO ONE (23:20)
[2023-11-21 23:30] VITALS: BP 110/65
[2023-11-21 23:37] LABS: BASO% 0.4 % (0-3); EOS% 1.6 % (0-8); HEMATOCRIT 40.6 % (37.0-47.0); HEMOGLOBIN 13.5 g/dl (12.0-16.0); IMMATURE GRANULOCYTES 0.3 % (0.0-5.0); LYMPH% 35.7 % (15-41); MEAN CORPUSCULAR HGB 29.9 pG CALC (26.0-32.0); MEAN CORPUSCULAR HGB CONC 33.3 g/dL CAL (32.0-36.0); MONO% 8.3 % (2-13); NEUT# 4.91 thou/uL (2.00-7.15); NEUT% 53.7 % (42-76); RED BLOOD COUNT 4.51 mill/uL (4.20-5.60); RED CELL DISTRI WIDTH 12.1 % (11.5-15.5)
[2023-11-21 23:49] LABS: ALBUMIN 4.4 g/dL (3.2-5.0); BILIRUBIN, TOTAL 0.5 mg/dL (0.02-1.3); CREATININE 0.7 mg/dL (0.5-1.0); POTASSIUM 3.5 mmol/l (3.5-5.1); TOTAL PROTEIN 7.5 g/dL (6.3-8.2)
[2023-11-22] MEDS ORDERED: IMITREX100 M1 PO (00:36)
[2023-11-22 01:10] VITALS: BP 110/65
== END 2023-11-22 01:08 | disposition home or self-care (01) | DRG 103 ==
LOC: ED 23:07
PROVIDERS: Family Medicine
DX: G43.909 Migraine, unspecified, not intractable, without status migrainosus (principal)

== ENCOUNTER 2024-02-24 19:19 | Emergency (ER) | payer BC ==
[~2024-02-24] VITALS: Ht 162.6 cm; Wt 77.0 kg
[~2024-02-24 19:19] MED LIST changes: +IMITREX100 M1 PO
[2024-02-24] MEDS ORDERED: CELEBREX200 MG PO (20:05)
[2024-02-24] MEDS ORDERED: FLEXERIL5 M1 PO (20:05)
[2024-02-24 20:10] VITALS: BP 108/74
[2024-02-24 20:15] VITALS: BP 108/73
[2024-02-24 20:30] VITALS: BP 110/74
[2024-02-24 20:45] VITALS: BP 106/69
== END 2024-02-24 20:45 | disposition home or self-care (01) | DRG 556 ==
LOC: ED 19:19
DX: M79.18 Myalgia, other site (principal); I10 Essential (primary) hypertension

== ENCOUNTER 2024-05-04 09:58 | Emergency (ER) | payer BC ==
[~2024-05-04] VITALS: Ht 162.6 cm; Wt 78.6 kg
[2024-05-04] VITALS (7 sets, daily range): BP systolic 100–110; BP diastolic 62–70
[~2024-05-04 09:58] MED LIST changes: +CELEBREX200 MG PO; +FLEXERIL5 M1 PO
[2024-05-04] MEDS ORDERED: LEVOCETIRIZINE D5 MG PO (12:46)
== END 2024-05-04 13:15 | disposition home or self-care (01) | DRG 153 ==
LOC: ED 09:58
DX: J06.9 Acute upper respiratory infection, unspecified (principal); Z20.822 Contact with and (suspected) exposure to COVID-19

== ENCOUNTER 2024-05-26 20:21 | Emergency (ER) | payer BC ==
[~2024-05-26 20:21] MED LIST changes: +LEVOCETIRIZINE D5 MG PO
[2024-05-27] MEDS ORDERED: HYDROCO/APAP1 TA9 PO ×2 (17:13→17:14)
[2024-05-27] MEDS ORDERED: ZOFRAN4 MG/TAB PO (17:13)
[2024-05-27] MEDS ORDERED: MOTRIN400 MG/TAB PO (17:13)
== END 2024-05-26 20:30 | disposition left against medical advice (07) | DRG 951 ==
LOC: ED 20:21 → LWOBS 20:30
DX: Z53.21 Procedure and treatment not carried out due to patient leaving prior to being seen by health care provider (principal); M25.561 Pain in right knee

== ENCOUNTER 2024-05-27 12:42 | Emergency (ER) | payer OTHER ==
[~2024-05-27] VITALS: Ht 162.6 cm; Wt 79.0 kg
[2024-05-27] MEDS ORDERED: ONDANSETRON 4 MG/TAB ODT PO ONE (17:10)
[2024-05-27] MEDS ORDERED: KETOROLAC TROMETHAMINE 30 MG/ML SDV IM ONE (17:10)
[2024-05-27] MEDS ORDERED: HYDROcodone 5 MG/Acetaminophen 325 MG/COMBO PO ONE (17:10)
[2024-05-27] MEDS ORDERED: ZOFRAN4 MG/TAB PO (17:13)
[2024-05-27] MEDS ORDERED: HYDROCO/APAP1 TA9 PO ×2 (17:13→17:14)
[2024-05-27] MEDS ORDERED: MOTRIN400 MG/TAB PO (17:13)
[2024-05-27 18:21] VITALS: BP 125/77
== END 2024-05-27 18:38 | disposition home or self-care (01) | DRG 556 ==
LOC: ED 12:42
DX: M25.561 Pain in right knee (principal)